=== PATIENT | female | born 1975 | race Caucasian/White ===

== ENCOUNTER → 2020-08-30 | Outpatient (CLI) | payer OTHER | LOC: US 08:41 | DX: R74.8 Abnormal levels of other serum enzymes (principal); M79.604 Pain in right leg | CPT/HCPCS: 76700; 93925 ==

== ENCOUNTER → 2021-10-15 | Outpatient (CLI) | payer OTHER | LOC: HEART 5 10-10 11:00 | DX: R07.9 Chest pain, unspecified (principal); I27.20 Pulmonary hypertension, unspecified; I08.3 Combined rheumatic disorders of mitral, aortic and tricuspid valves | CPT/HCPCS: 93306 ==

== ENCOUNTER → 2021-10-31 | Outpatient (CLI) | payer OTHER | LOC: HEART 5 10-24 13:30 | DX: R07.9 Chest pain, unspecified (principal) ==

== ENCOUNTER → 2021-12-02 | Outpatient (CLI) | payer OTHER | LOC: HEART 5 10:33 | DX: R06.02 Shortness of breath (principal) | CPT/HCPCS: 94010 ==

== ENCOUNTER → 2021-12-20 | Outpatient (CLI) | payer OTHER | LOC: NM 12-06 15:00 → CT 12-19 15:00 | DX: I27.20 Pulmonary hypertension, unspecified (principal); I51.7 Cardiomegaly; R91.8 Other nonspecific abnormal finding of lung field | CPT/HCPCS: 71250; 78580; A9540 ==

== ENCOUNTER → 2021-12-31 | Day surgery (SDC) | payer OTHER ==
[~2021-12-31] MED LIST: DULOXETINE HCL60 MG PO; FAMOTIDINE20 MG PO; FENOFIBRATE48 MG PO; LEVOTHYROXINE50 MCG PO; PROAIR HFA8.5 GM INH; VITAMIN D325 MC6 PO
== END | disposition home or self-care (01) ==
LOC: CATH 06:21
DX: I08.3 Combined rheumatic disorders of mitral, aortic and tricuspid valves (principal); I27.20 Pulmonary hypertension, unspecified; K21.9 Gastro-esophageal reflux disease without esophagitis; E03.9 Hypothyroidism, unspecified; Z72.0 Tobacco use; Z88.8 Allergy status to other drugs, medicaments and biological substances
CPT/HCPCS: 93005; 93312; 93320; J1200; J2250; J2310; J2704; J3010

== ENCOUNTER → 2022-01-13 | Outpatient (CLI) | payer OTHER ==
[~2022-01-13] MED LIST changes: +BENICAR5 MG PO; +DOXYCYCLINE HY100 MG PO; +MUPIROCIN30 GM TP
[2022-01-13 07:22] LABS: HEMOGLOBIN 15.7 gm/dl (12.3-15.3); RED BLOOD COUNT 5.65 M/UL (4.00-5.10); WHITE BLOOD COUNT 9.5 K/UL (4.5-11.0)
[2022-01-13 08:13] LABS: BUN/CREATININE RATIO 32 (0-10)
== END ==
LOC: CATH 06:41
PROVIDERS: Internal Medicine Interventional Cardiology
DX: I27.20 Pulmonary hypertension, unspecified (principal)
CPT/HCPCS: 36600; 80048; 82803; 82810; 85025; 85610; 85730; 93005; 99152; 99153; C1751; C1769; J0153; J0461; J1644; J2250; J3010